=== PATIENT | male | born 1975 | race Two or more races ===

== ENCOUNTER 2024-03-28 10:14 | Emergency (ER) | payer OTHER ==
[~2024-03-28] VITALS: Ht 170.2 cm; Wt 72.6 kg
[2024-03-28] MEDS ORDERED: LISINOPRIL5 MG (10:27)
== END 2024-03-28 14:18 | disposition home or self-care (01) ==
LOC: ER 10:16
DX: R60.0 Localized edema (principal); I87.2 Venous insufficiency (chronic) (peripheral)

== ENCOUNTER 2025-05-28 17:24 | Inpatient (IN) | payer OTHER ==
[~2025-05-28] VITALS: Ht 167.6 cm; Wt 70.3 kg
[~2025-05-28 17:24] MED LIST: LISINOPRIL5 MG
--- NOTE | 2025-05-28 19:33 | NUR ---
PACIENTE ALERTA Y ORIENTADO, REFIERE TENER MARLEN DOLOR ABDOMINAL DESDE EL JUEVES, EL MISMO HOPE PRESENTADO MULTIPLES VOMITOS Y DIARREAS HERMILO EL FIN DE SEMANA, HOY 4 VOMITOS,EL ULTIMO A LAS 1630. SE MIDEN V/S Y UBICA.
[2025-05-28] MEDS ORDERED: ONDANSETRON HCL 2 MG/ML VIAL IV ONE (20:00)
[2025-05-28] MEDS ORDERED: KETOROLAC TROMETHAMINE 30 MG VIAL IV ONE (20:00)
[2025-05-28] MEDS ORDERED: LACTOBACILLUS ACIDOPHILUS 1 CAP CAP PO ONE (20:00)
[2025-05-28] MEDS ORDERED: FAMOTIDINE/PF 20 MG/2 ML VIAL IV ONE (20:00)
[2025-05-28] MEDS ORDERED: 0.9 % SODIUM CHLORIDE 1,000 ML IV ONE (20:00)
[2025-05-28 23:07] LABS: BASO % 0.4 % (0.1-1.2); EOS # 0.01 (0.04-0.54); EOS % 0.2 % (0.7-7.0); LYMPH # 1.20 (1.18-3.74); LYMPH % 25.4 % (19.3-53.1); MEAN PLATELET VOLUME 9.50 fl (9.4-12.4); MONO # 0.91 (0.24-0.82); NEUT # 2.58 (1.56-6.13); NEUT % 54.6 % (34.0-71.1); RED CELL DISTRIBUTION WIDTH 12.3 % (11.6-14.4)
[2025-05-28 23:19] LABS: MONO % 19.2 % (4.7-12.5)
--- NOTE | 2025-05-28 23:22 | NUR ---
ADINA ORIENTA A PTE SOBRE TX MEDICO ORDENADO. REALIZA ROSAURA DE MUESTRAS ARIN ORDEN MEDICA Y BAJO MEDIDAS ASEPTICAS. VENOPUNCION PATENTE RAPHAEL DE EDEMA Y ERITEMA BAJANDO IV FLUIDS POR REGULADOR. PTE PENDIENTE A ESTUDIO, SE NOTIFCA.
[2025-05-28 23:26] LABS: INR 1.02
[2025-05-28 23:31] LABS: ALT/SGPT 19.0 U/L (12-78); AST/SGOT 17.0 U/L (15-37); BILIRUBIN TOTAL 0.7 mg/dL (0.3-1.2); BUN CREA RATIO 14.0 (7.0-25.0); CREATININE SERUM 0.9 mg/dL (0.70-1.30); GFR 88.61; GLOBULINA 3.5 G/DL (2.4-3.5); GLUCOSE FASTING 91.0 mg/dL (65-100); OSMOLALITY SERUM 277.0 MOSM/KG (275-295)
[2025-05-28 23:54] LABS: COVID-19 AG NEGATIVE (NEGATIVE)
[2025-05-29 00:33] LABS: URINE APPEARANCE Clear; URINE BILIRRUBIN Negative (NEGATIVE); URINE BLOOD Small; URINE COLOR Dark Yellow; URINE GLUCOSE Negative (NEGATIVE); URINE LEUKOCYTE Negative; URINE NITRATE Negative; URINE PROTEIN 30 (NEGATIVE); URINE UROBILINOGEN 1.0 E.U./dl
[2025-05-29 00:36] LABS: URINE BACTERIA 9.5 uL (0.0-1933); URINE RBC 17.1 uL (0.0-20.8); URINE WBC 1.8 uL (0.0-23.2)
[2025-05-29 00:47] LABS: URINE CAST 0.29 uL (0.0-1.40); URINE EPITHELIAL CELLS 1.0 uL (0.0-38.8); URINE KETONE >=160 (NEGATIVE)
--- NOTE | 2025-05-29 08:33 | NUR ---
SE LE ORIENTA A PACIENTE SOBRE NUEVO TRATAMIENTO MEDICO Y REFIERE ENTENER, PACIENTE VERBALIZA QUE DESEA ESPERAR POR CONSULTA CON MEDICO PARA COLOCA NGT.
--- NOTE | 2025-05-29 09:10 | NUR ---
SE LE ORIENTA A PACIENTE SOBRE TRATAMIENTO MEDICO Y REFIERE ENTENDER, SE LE INSERTA A PACIENTE NGT # 16 EN FOSA NASAL DERECHA, SE AUSCULTA NGT Y EL MISMO SE ENCUENTRA EN ESTOMAGO Y PATENTE, SE CONECTA A SUCCION CONTINUA.
[2025-05-29] MEDS ORDERED: 0.9 % SODIUM CHLORIDE 1,000 ML IV ONE (11:15)
[2025-05-29] MEDS ORDERED: PIPERACILLIN/TAZOBACTAM SODIUM 3.375 GM VIAL IV ONE (11:15)
[2025-05-29] MEDS ORDERED: FAMOTIDINE/PF 20 MG in 0.9 % SODIUM CHLORIDE 100 ML IV SCH (13:27)
[2025-05-29] MEDS ORDERED: ONDANSETRON HCL 4 MG in 0.9 % SODIUM CHLORIDE 50 ML IV PRN (13:30)
[2025-05-29] MEDS ORDERED: MORPHINE SULFATE 4 MG/ML CARTRIDGE IV STA (14:33)
[2025-05-29] MEDS ORDERED: MORPHINE SULFATE 4 MG/ML VIAL IV PRN (14:45)
[2025-05-29 14:59] LABS: INR 1.06
[2025-05-29] MEDS ORDERED: RINGERS SOLUTION,LACTATED 1,000 ML IV SCH (15:00)
[2025-05-29 15:20] VITALS: BP 110/70
[2025-05-29 19:10] VITALS: BP 142/76; O2SAT 97
[2025-05-30] VITALS: BP 101/59; O2SAT 96
[2025-05-30 07:27] LABS: BASO % 0.3 % (0.1-1.2); EOS # 0.08 (0.04-0.54); EOS % 1.4 % (0.7-7.0); LYMPH # 2.17 (1.18-3.74); LYMPH % 37.2 % (19.3-53.1); MEAN PLATELET VOLUME 10.00 fl (9.4-12.4); MONO # 0.87 (0.24-0.82); NEUT # 2.68 (1.56-6.13); NEUT % 45.9 % (34.0-71.1); RED CELL DISTRIBUTION WIDTH 12.1 % (11.6-14.4)
[2025-05-30 07:44] LABS: ERYTHROCYTE SEDIMENTATION RATE 9 mm/hr (0-20)
[2025-05-30 07:45] LABS: MONO % 14.9 % (4.7-12.5)
[2025-05-30 07:53] LABS: BUN CREA RATIO 20.0 (7.0-25.0); CREATININE SERUM 0.76 mg/dL (0.70-1.30); GFR 107.7; GLUCOSE FASTING 66.0 mg/dL (65-100); INR 1.04; OSMOLALITY SERUM 277.0 MOSM/KG (275-295)
[2025-05-30 08:28] VITALS: BP 132/76; O2SAT 97
[2025-05-30] MEDS ORDERED: LISINOPRIL 5 MG TABLET PO SCH (09:00)
[2025-05-30] MEDS ORDERED: LISINOPRIL 10 MG TABLET PO SCH (09:00)
[2025-05-30 16:43] VITALS: BP 123/78; O2SAT 97
[2025-05-31 02:22] VITALS: BP 123/79; O2SAT 98
[2025-05-31 08:00] VITALS: BP 136/83; O2SAT 98
[2025-05-31] MEDS ORDERED: DIATRIZOATE MEGLUMINE, SODIUM 30 ML BOTTLE PO NR (10:00)
[2025-05-31] MEDS ORDERED: HYOSCYAMINE SULFATE 0.125 MG TAB.SUBL SL PRN (11:45)
[2025-05-31] MEDS ORDERED: DEXTROSE 10 % IN WATER 500 ML IV SCH (12:30)
[2025-05-31 16:00] VITALS: BP 124/82; O2SAT 96
[2025-05-31] MEDS ORDERED: AMINO ACIDS 4.25 %/DEXTROSE 5% 1,000 ML PERIFERAL SCH (17:00)
[2025-05-31] MEDS ORDERED: FAT EMULSIONS 250 ML IV SCH ×2 (21:00)
[2025-05-31] MEDS ORDERED: FAMOTIDINE/PF 20 MG in 0.9 % SODIUM CHLORIDE 100 ML IV SCH (21:00)
[2025-06-01 00:49] VITALS: BP 137/78; O2SAT 98
[2025-06-01 06:22] LABS: BASO % 0.6 % (0.1-1.2); EOS # 0.10 (0.04-0.54); EOS % 2.8 % (0.7-7.0); LYMPH # 1.52 (1.18-3.74); LYMPH % 42.7 % (19.3-53.1); MEAN PLATELET VOLUME 10.00 fl (9.4-12.4); MONO # 0.71 (0.24-0.82); NEUT # 1.20 (1.56-6.13); NEUT % 33.7 % (34.0-71.1); RED CELL DISTRIBUTION WIDTH 11.8 % (11.6-14.4)
[2025-06-01 06:50] LABS: MONO % 19.9 % (4.7-12.5)
[2025-06-01 07:20] LABS: BUN CREA RATIO 13.0 (7.0-25.0); CHOL HDL RATIO 4.1 (0-5.0); CREATININE SERUM 0.7 mg/dL (0.70-1.30); GFR 118.42; GLUCOSE FASTING 104.0 mg/dL (65-100); HDL 27.0 mg/dl (40-60); LDL 54.0 mg/dl (0-130); OSMOLALITY SERUM 280.0 MOSM/KG (275-295); VLDL 29.0 (0-39)
[2025-06-01 07:30] VITALS: BP 135/89; O2SAT 95
[2025-06-01 16:00] VITALS: BP 128/79; O2SAT 98
[2025-06-01] MEDS ORDERED: AA 4.25%/CALCIUM/LYTES/DEX 10% 1,000 ML CENTRAL SCH (17:00)
[2025-06-01] MEDS ORDERED: OxyCODONE HCL 5 MG TABLET (ROXICODONE) PO PRN (19:00)
[2025-06-01] MEDS ORDERED: RINGERS SOLUTION,LACTATED 1,000 ML IV SCH (19:00)
[2025-06-01] MEDS ORDERED: DEXTROSE 50 % IN WATER 0.5 G/ML DISP.SYRIN IV PRN (19:00)
[2025-06-01] MEDS ORDERED: MORPHINE SULFATE 4 MG/ML CARTRIDGE IV PRN (19:00)
[2025-06-01] MEDS ORDERED: ONDANSETRON HCL 2 MG/ML VIAL IV PRN (19:00)
[2025-06-01] MEDS ORDERED: ACETAMINOPHEN 500 MG GEL..CAP PO SCH (20:00)
[2025-06-01] MEDS ORDERED: SIMETHICONE 125 MG CAPSULE PO SCH (21:00)
[2025-06-01] MEDS ORDERED: CELECOXIB 200 MG CAPSULE PO SCH (21:00)
[2025-06-01] MEDS ORDERED: CIPROFLOXACIN IN 5 % DEXTROSE 400 MG/200 ML PIGGYBAG IV SCH (21:00)
[2025-06-01] MEDS ORDERED: FAMOTIDINE/PF 20 MG/2 ML VIAL IV PUSH SCH (21:00)
[2025-06-02] MEDS ORDERED: KETOROLAC TROMETHAMINE 30 MG VIAL IM SCH
[2025-06-02] MEDS ORDERED: GABAPENTIN 300 MG CAPSULE PO SCH (01:00)
[2025-06-02] MEDS ORDERED: METRONIDAZOLE/SODIUM CHLORIDE 500 MG/100 ML PIGGYBACK IV SCH (01:00)
[2025-06-02] MEDS ORDERED: METOCLOPRAMIDE HCL 5 MG/ML VIAL IV SCH (01:00)
[2025-06-02 01:24] VITALS: BP 108/71; O2SAT 98
[2025-06-02 08:00] VITALS: BP 136/86; O2SAT 97
[2025-06-02] MEDS ORDERED: HYOSCYAMINE SULFATE 0.125 MG TAB.SUBL SL SCH (09:00)
[2025-06-02] MEDS ORDERED: LACTOBACILLUS ACIDOPHILUS 1 CAP CAP PO SCH (09:00)
[2025-06-02] MEDS ORDERED: ENOXAPARIN SODIUM 40 MG/0.4 ML SYRINGE SUBCUTANEO SCH (17:00)
[2025-06-02 17:33] VITALS: BP 129/85; O2SAT 97
[2025-06-03 00:30] VITALS: BP 102/65; O2SAT 98
[2025-06-03 08:00] VITALS: BP 126/71; O2SAT 97
[2025-06-03] MEDS ORDERED: LACTOBACILLUS ACIDOPHILUS 1 CAP CAP PO SCH (09:00)
[2025-06-03] MEDS ORDERED: ENOXAPARIN SODIUM 40 MG/0.4 ML SYRINGE SUBCUTANEO SCH (09:00)
[2025-06-04] VITALS: BP 119/75; O2SAT 97
[2025-06-04 08:00] VITALS: BP 123/78; O2SAT 97
[2025-06-04 16:00] VITALS: BP 136/90; O2SAT 97
[2025-06-05 00:30] VITALS: BP 119/71; O2SAT 97
[2025-06-05 08:00] VITALS: BP 115/73; O2SAT 98
[2025-06-05] MEDS ORDERED: INTESTINEX680 M1 PO (09:30)
[2025-06-05] MEDS ORDERED: PROTONIX40 MG PO (09:30)
[2025-06-05] MEDS ORDERED: FAT EMULSION/OLIVE/SOY/PHOSPHO 250 ML IV SCH (21:00)
== END 2025-06-05 12:42 | disposition home or self-care (01) | DRG 390 ==
LOC: ER 17:25 → SURG 05-29 13:31 → MEDI 05-29 13:31 → SURG 05-29 18:07
PROVIDERS: General Practice; Preventive Medicine Public Health & General Preventive Medicine; Student in an Organized Health Care Education/Training Program; ADMIT Surgery; ATTEND Surgery
PROC: BW21YZZ Computerized Tomography (CT Scan) of Abdomen and Pelvis using Other Contrast (ICD-10-PCS; principal; 2025-05-28)
PROC: 0DH68UZ Insertion of Feeding Device into Stomach, Via Natural or Artificial Opening Endoscopic (ICD-10-PCS; 2025-05-29)
PROC: BW21ZZZ Computerized Tomography (CT Scan) of Abdomen and Pelvis (ICD-10-PCS; 2025-05-31)
PROC: 02HV33Z Insertion of Infusion Device into Superior Vena Cava, Percutaneous Approach (ICD-10-PCS; 2025-06-01)
DX: K56.690 Other partial intestinal obstruction (principal); I10 Essential (primary) hypertension; E86.0 Dehydration
CPT/HCPCS: 74175